=== PATIENT | female | born 1985 | race African-American/Black ===

== ENCOUNTER 2022-03-18 14:32 | Emergency (ER) | payer OTHER, MEDICAID, SELFPAY ==
[2022-03-18 14:42] VITALS: BP 111/79; PULSE 96; RESP 16; TEMP 36.7; O2SAT 99
--- NOTE | 2022-03-18 15:14 | ED.URI ---
HPI - URI/Sore Throat General Chief Complaint: Upper Respiratory Infection Stated Complaint: URI Time Seen by Provider: 03/18/22 15:14 Source: patient and RN notes reviewed Mode of arrival: ambulatory Limitations: no limitations History of Present Illness HPI Narrative: 36-year-old female presented for complaint of frontal headache, onset yesterday. Endorses runny nose. Denies vision changes, dizziness, seizure activity or nausea/vomiting. She is taking Sudafed allergy medication. Pt states she follows with neurology for seizures. MD elicited complaint: cough Related Data Home Medications Medication Instructions Recorded Confirmed levetiracetam 500 mg tablet 1 tablet PO BID 03/18/22 03/18/22 Allergies Allergy/AdvReac Type Severity Reaction Status Date / Time No Known Allergies Allergy Verified 03/18/22 14:40 Review of Systems Review of Systems: CONSTITUTIONAL: Denies malaise, chills, sweats, fever EYES: Denies visual changes, redness, or discharge ENT: Reports rhinorrhea, congestion, sinus pain CARDIOVASCULAR: Denies chest pain, palpitations, edema RESPIRATORY: Denies dyspnea, cough, post nasal drainage. GASTROINTESTINAL: Denies abdominal pain, nausea, vomiting, diarrhea SKIN: Denies rash or itching MUSCULOSKELETAL: denies myalgia Exam Narrative: GENERAL: Well-appearing HEAD: Normocephalic, atraumatic. EYES: EOMI. No redness or drainage. Conjunctivae normal. ENT: Mucous membranes pink and moist. No rhinorrhea. TMs normal bilaterally. CHEST: No respiratory distress. Clear to auscultation. HEART: Regular rate and rhythm. No murmur appreciated. Normal peripheral pulses. SKIN: Warm, dry, no rash. Capillary refill normal. Normal skin turgor. NEURO: No focal deficits. Alert and oriented x3. Gait steady. PSYCH: Normal affect. Course Course Emergency Course: Patient is aware of diagnosis, understands and agrees to treatment plan. Anticipatory guidance given. Patient agrees to follow-up as directed and is aware of reasons to seek care at the emergency department. Portions of this record may have been created with voice recognition software Level of Care: Express Care Visit Vital Signs Vital signs: Vital Signs Temperature 98.0 F 03/18/22 14:42 Pulse Rate 96 03/18/22 14:42 Respiratory Rate 16 03/18/22 14:42 Blood Pressure 111/79 03/18/22 14:42 Pulse Oximetry 99 03/18/22 14:42 Oxygen Delivery Room Air 03/18/22 14:42 Temperature 98.0 F 03/18/22 14:42 Pulse Rate 96 03/18/22 14:42 Respiratory Rate 16 03/18/22 14:42 Blood Pressure 111/79 03/18/22 14:42 Pulse Oximetry 99 03/18/22 14:42 Oxygen Delivery Room Air 03/18/22 14:42 reviewed MDM - URI/Sore Throat MDM Narrative Medical decision making narrative: Patient is requesting a work note. Advised supportive measures and signs/symptoms to go to the ER. Pt is appropriate for outpt treatment and f/u. Differential Diagnosis Differential diagnosis: Likely upper respiratory infection, sinusitis and viral infection Discharge Plan Discharge Clinical Impression: Headache Qualifiers: Headache type: unspecified Headache chronicity pattern: acute headache Intractability: not intractable Qualified Code(s): R51.9 - Headache, unspecified Patient Disposition: Home, Self-Care Condition: Stable Instructions: Acute Headache (ED) Additional Instructions: Rest in a cool dark room Avoid screens (computers, tablets, phones, television) Drink plenty fluids. Tylenol 1000mg every 8 hours as needed, alternate with ibuprofen 800mg every 8 hours for 3 days Follow up with your primary care provider and neurologist in 1 week Go to the ER for worsening symptoms or concerns Prescriptions: No Action levetiracetam 500 mg tablet 1 tablet PO BID Follow-up/Referrals: UNKNOWN,DOCTOR [Primary Care Provider] - Stand Alone Forms: Work/School Release IP Time of Disposition: 15:21
== END 2022-03-18 15:22 | disposition home or self-care (01) ==
PROVIDERS: Emergency Provider Nurse Practitioner Family
DX: R51.9 Headache, unspecified (principal); G40.909 Epilepsy, unspecified, not intractable, without status epilepticus
CPT/HCPCS: 99211; G0463

== ENCOUNTER 2023-07-29 09:22 | Emergency (ER) | payer OTHER, MEDICAID, SELFPAY ==
[2023-07-29 09:40] VITALS: BP 119/84; PULSE 114; RESP 16; TEMP 38.1; O2SAT 99
--- NOTE | 2023-07-29 09:59 | ED.URI ---
HPI - URI/Sore Throat General Chief Complaint: Upper Respiratory Infection Stated Complaint: cough,nausea,headache Source: patient and RN notes reviewed Mode of arrival: ambulatory Limitations: no limitations History of Present Illness HPI Narrative: 38 y/o female presented for c/o headache, facial pressure, cough. Onset yesterday. States she just returned from [place] yesterday, but denies known sick contacts. Denies body aches, sob, wheezing, n/v/d/f/c. Not taking anything for symptoms. MD elicited complaint: cough Related Data Home Medications Medication Instructions Recorded Confirmed levetiracetam 500 mg tablet 1 tablet PO BID 03/18/22 07/29/23 Allergies Allergy/AdvReac Type Severity Reaction Status Date / Time No Known Allergies Allergy Verified 07/29/23 09:41 Review of Systems Review of Systems: CONSTITUTIONAL: Endorses malaise, denies chills, sweats, fever EYES: Denies visual changes, redness, or discharge ENT: Reports rhinorrhea, congestion, sinus pain, denies otalgia, sore throat CARDIOVASCULAR: Denies chest pain, palpitations, edema RESPIRATORY: Reports cough, post nasal drainage. Denies dyspnea GASTROINTESTINAL: Denies abdominal pain, nausea, vomiting, diarrhea SKIN: Denies rash or itching MUSCULOSKELETAL: Denies myalgia NEUROLOGIC: Reports headache PMFSH Past Medical History Medical History (Updated 07/29/23 @ 10:34 by Mireya Reinoso, [email or web address]) Epilepsy Exam Narrative: GENERAL: mildly Ill-appearing, nontoxic no acute distress. HEAD: Normocephalic EYES: PERRLA, conjunctivae clear ENT: Mucous membranes moist. maxillary facial tenderness. TMs pearly beltrán with dull light reflex bilaterally; no tragal tenderness. Oropharynx mildly erythematous without lesions or exudate, no drooling, no hoarseness, no trismus, uvula midline. NECK: Supple. No lymphadenopathy CHEST: Clear to auscultation, breath sounds equal. No wheezing, rhonchi, rales, or stridor. No respiratory distress, speaks in full sentences. HEART: Regular rate and rhythm. No murmur heard. SKIN: Warm, dry, no rash. NEURO: Alert and oriented x3. PSYCH: Normal mood and affect Course Course Emergency Course: Patient is aware of diagnosis, understands and agrees to treatment plan. Anticipatory guidance given. Patient agrees to follow-up as directed and is aware of reasons to seek care at the emergency department. Portions of this record may have been created with voice recognition software Level of Care: Express Care Visit Vital Signs Vital signs: Vital Signs Temperature 100.5 F H 07/29/23 09:40 Pulse Rate 114 H 07/29/23 09:40 Respiratory Rate 16 07/29/23 09:40 Blood Pressure 119/84 07/29/23 09:40 Pulse Oximetry 99 07/29/23 09:40 Oxygen Delivery Room Air 07/29/23 09:40 Temperature 100.5 F H 07/29/23 09:40 Pulse Rate 114 H 07/29/23 09:40 Respiratory Rate 16 07/29/23 09:40 Blood Pressure 119/84 07/29/23 09:40 Pulse Oximetry 99 07/29/23 09:40 Oxygen Delivery Room Air 07/29/23 09:40 reviewed MDM - URI/Sore Throat MDM Narrative Medical decision making narrative: covid negative flu and strep testing declined. Discussed physical exam findings, high suspicion of covid recommend retesting tomorrow. Advised supportive measures and signs/symptoms to go to the ER. Pt is appropriate for outpt treatment and f/u. Differential Diagnosis Differential diagnosis: Likely upper respiratory infection, sinusitis and viral infection Discharge Plan Discharge Clinical Impression: Viral infection Patient Disposition: Home, Self-Care Condition: Stable Instructions: Antibiotic Form, Upper Respiratory Infection (ED), COVID-19 (Coronavirus Disease 2019) (ED) Additional Instructions: Your rapid covid test was negative today. It may be too early to detect the virus, therefore we recommend retesting at home in 1-2 days Continue to follow general precautions: frequent handwashing, we
== END 2023-07-29 10:37 | disposition home or self-care (01) ==
PROVIDERS: Emergency Provider Nurse Practitioner Family
DX: B34.9 Viral infection, unspecified (principal); Z20.822 Contact with and (suspected) exposure to COVID-19; G40.909 Epilepsy, unspecified, not intractable, without status epilepticus
CPT/HCPCS: 87426; 99213; C9803; G0463

== ENCOUNTER 2023-09-13 06:25 | Emergency (ER) | payer OTHER, MEDICAID, SELFPAY ==
[2023-09-13 06:28] VITALS: BP 124/80; PULSE 77; RESP 18; TEMP 36.9; O2SAT 98
--- NOTE | 2023-09-13 07:54 | ED.EYEPROB ---
HPI - Eye Problem General Chief complaint: Eye Problems Stated complaint: eye complaint Time Seen by Provider: 09/13/23 07:18 Source: patient, RN notes reviewed and old records reviewed Mode of arrival: ambulatory Limitations: no limitations History of Present Illness HPI Narrative: This is a 38 year old female who presents for evaluation of left eye irritation. Patient states she noticed some left eye irritation yesterday. This morning she noticed redness to her eye and bump on her lower eye lid. She denies history eye surgery, contact lens use or glasses. Related Data Home Medications Medication Instructions Recorded Confirmed levetiracetam 500 mg tablet 1 tablet PO BID 03/18/22 07/29/23 Allergies Allergy/AdvReac Type Severity Reaction Status Date / Time No Known Allergies Allergy Verified 09/13/23 07:18 Review of Systems Review of Systems: All systems reviewed & are unremarkable except as noted in HPI and below PMFSH Past Medical History Medical History (Updated 09/13/23 @ 08:02 by Lorrie Andrews MD) Epilepsy Surgical History Surgical History (Updated 09/13/23 @ 07:57 by Lorrie Andresw MD) History of cholecystectomy Social History Social History (Updated 09/13/23 @ 07:57 by Lorrie Andrews MD) Smoking status: Never smoker Alcohol intake: never Exam Const: General: no acute distress and alert Nutritional Appearance: well nourished Orientation/consciousness: patient oriented x3 Limitations: no limitations HENMT: Head: normal to inspection Mouth: Yes Normal oral and palatal mucosa present and Yes lip normal Eyes: Conjunctivae: conjunctival abnormality left (left lower lip inner erythema with pustule) EOM: EOMs intact bilaterally Resp: Effort & Inspection: normal respiratory effort Skin: General skin exam: normal color Wounds: no wounds Neuro: General: patient oriented x3, moves all extremities and CN's II-XI intact bilaterally Psych: Mental Status: mental status grossly normal Affect: normal affect Attitude: cooperative Course Reevaluation(s) Reevaluation #1: I Discussed with patient plan to discharge with antibiotics for treatment with warm compress Date: 09/13/23 Time: 07:59 Vital Signs Vital signs: Vital Signs Temperature 98.5 F 09/13/23 06:28 Pulse Rate 77 09/13/23 06:28 Respiratory Rate 18 09/13/23 06:28 Blood Pressure 124/80 09/13/23 06:28 Pulse Oximetry 98 09/13/23 06:28 Oxygen Delivery Room Air 09/13/23 06:28 Temperature 98.5 F 09/13/23 06:28 Pulse Rate 77 09/13/23 06:28 Respiratory Rate 18 09/13/23 06:28 Blood Pressure 124/80 09/13/23 06:28 Pulse Oximetry 98 09/13/23 06:28 Oxygen Delivery Room Air 09/13/23 06:28 Discharge Plan Discharge Clinical Impression: Hordeolum externum left lower eyelid Patient Disposition: Home, Self-Care Condition: Stable Instructions: Antibiotic Form, Eulogio (ED) Additional Instructions: Today you are going to be started on treatment for inflamed duct. You will need to massage your eye with warm compress for 10-15 minutes 4 to 5 times a day to help with this. Use antibiotics as prescribed. If you symptoms have not improved by Thursday follow up with an eye doctor. Prescriptions: New polymyxin B sulf-trimethoprim 10,000 unit- 1 mg/mL drops 1 drp LEFT EYE Q3H 7 Days Qty: 10 0RF Rx Instructions: while awake; do not exceed 6 doses in 24 hours No Action levetiracetam 500 mg tablet 1 tablet PO BID Follow-up/Referrals: PHYSICIAN,[employer]ER [Non-Staff] - Kevyn Grant MD [Physician] -
== END 2023-09-13 08:08 | disposition home or self-care (01) ==
PROVIDERS: Emergency Provider General Practice
DX: H00.015 Hordeolum externum left lower eyelid (principal); G40.909 Epilepsy, unspecified, not intractable, without status epilepticus
CPT/HCPCS: 99283

== ENCOUNTER 2024-06-26 08:16 | Emergency (ER) | payer OTHER, SELFPAY ==
[2024-06-26 08:17] VITALS: BP 132/85; PULSE 92; RESP 18; TEMP 36.4; O2SAT 98
[2024-06-26 09:25] LABS: BEDSIDEPREGUCG Negative (Negative)
[2024-06-26 09:45] LABS: Add Urine Microscopic? YES; Appearance Urine Cloudy (Clear); Bacteria Urine 4+ /hpf; Bilirubin Urine Negative (Negative); Blood Urine 3+ (Negative); Color Urine Yellow (Yellow); Glucose Urine UA Negative (Negative); Ketones Urine Negative (Negative); Leukocyte Esterase Ur 3+ LEU/UL (Negative); Need Manual Microscopic Reviewed; Nitrate Urine Positive (Negative); Protein Urine 1+ mg/dL (Negative); RBC Urine >100 /hpf (0-2); Specific Grav Ur 1.024 (1.001-1.035); Squamous Epithelial Cell Urine Few /hpf (Few); WBC Urine >100 /hpf (0-3); pH Urine 6.5 (5.0-9.0)
--- NOTE | 2024-06-26 10:54 | ED.FEMALEGU ---
HPI - Female Genitourinary General Chief complaint: Urogenital-Female Stated complaint: hematuria Time Seen by Provider: 06/26/24 09:18 History of Present Illness HPI Narrative: 39-year-old female presents emergency department for evaluation for hematuria. Patient 1st noticed hematuria this morning. Patient denies any vaginal bleeding. Patient was on antibiotics for a urinary tract infection but she was on Macrobid. Related Data Home Medications Medication Instructions Recorded Confirmed levetiracetam 500 mg tablet 1 tablet PO BID 03/18/22 07/29/23 Allergies Allergy/AdvReac Type Severity Reaction Status Date / Time No Known Allergies Allergy Verified 06/26/24 08:16 Review of Systems Review of Systems: All systems reviewed & are unremarkable except as noted in HPI and below PMFSH Past Medical History Medical History (Updated 06/26/24 @ 10:57 by Bill Rm MD) Epilepsy Surgical History Surgical History (Updated 09/13/23 @ 07:57 by Lorrie Andrews MD) History of cholecystectomy Social History Social History (Updated 09/13/23 @ 07:57 by Lorrie Andrews MD) Smoking status: Never smoker Alcohol intake: never Exam Narrative: APPEARANCE: Well appearing, no pain, no distress, well-nourished. HEAD: normocephalic, atraumatic. EYES: PERRLA/EOMI, conjunctivae clear. NOSE: Normal no drainage EARS:TMS clear with good light reflex. THROAT: Pharynx clear, no exudate. NECK: Supple. No adenopathy, no masses. RESPIRATORY: Airway patent, respirations nonlabored. Clear to auscultation bilaterally, no rales, rhonchi, wheezing. CARDIOVASCULAR: Regular rate and rhythm without murmurs rubs or gallops. ABDOMINAL: Soft, nontender, nondistended, normal bowel sounds MUSCULOSKELETAL: Moves all extremities. Strength/ROM intact, No edema, No calf tenderness. NEURO: Alert. Cranial nerves II through XII intact. Grossly intact Course Vital Signs Vital signs: Vital Signs Temperature 97.6 F 06/26/24 08:17 Pulse Rate 92 06/26/24 08:17 Respiratory Rate 18 06/26/24 08:17 Blood Pressure 132/85 06/26/24 08:17 Pulse Oximetry 98 06/26/24 08:17 Oxygen Delivery Room Air 06/26/24 08:17 Temperature 97.6 F 06/26/24 08:17 Pulse Rate 92 06/26/24 08:17 Respiratory Rate 18 06/26/24 08:17 Blood Pressure 132/85 06/26/24 08:17 Pulse Oximetry 98 06/26/24 08:17 Oxygen Delivery Room Air 06/26/24 08:17 MDM - Female Genitourinary MDM Narrative Medical decision making narrative: 31-year-old female present to the emergency department for your Na symptoms. Patient's urine is significant for UTI, patient is positive for nitrates positive for leukocyte esterase and has high red blood cells and white blood cells. Patient was started on Keflex emergency department discharged home with Keflex. Differential Diagnosis Differential diagnosis: Likely urinary tract infection, bacterial vaginosis, trichomoniasis, cervicitis, vaginitis and dysmenorrhea Lab Data Attestation: I reviewed the patient's lab results. Labs: Lab Results 06/26/24 06/26/24 Range/Units 09:20 09:24 Urine Color Yellow (Yellow) Urine Appearance Cloudy H (Clear) Urine pH 6.5 (5.0-9.0) Ur Specific Fossil 1.024 (1.001-1.035) Urine Protein 1+ H (Negative) mg/dL Urine Glucose (UA) Negative (Negative) mg/dL Urine Ketones Negative (Negative) mg/dL Ur Blood (Man) 3+ H (Negative) Urine Nitrate Positive H (Negative) Urine Bilirubin Negative (Negative) Urine Urobilinogen 1.0 (<2.0) mg/dL Add Ur Microanalysis Reviewed Leukocyte Esterase Rfl 3+ H (Negative) GARFIELD/UL Urine RBC >100 H (0-2) /hpf Urine WBC >100 H (0-3) /hpf Ur Squamous Epith Cells Few (Few) /hpf Urine Bacteria 4+ H /hpf Urine Casts 3-5 POC Urine HCG, Qual Negative (Negative) Discharge Plan Discharge Clinical Impression: Urinary tract infection, Hematuria P
[2024-06-26] MEDS: CEPHALEXIN 500 MG CAPSULE PO (10:59)
== END 2024-06-26 11:04 | disposition home or self-care (01) ==
PROVIDERS: Emergency Provider Emergency Medicine
DX: N39.0 Urinary tract infection, site not specified (principal); R31.9 Hematuria, unspecified; G40.909 Epilepsy, unspecified, not intractable, without status epilepticus; Z90.49 Acquired absence of other specified parts of digestive tract
CPT/HCPCS: 81001; 81025; 87077; 87086; 87186; 99283; A9270